=== PATIENT | male | born 1980 | race Caucasian/White ===

== ENCOUNTER 2016-07-22 23:37 | Emergency (ER) | payer SELFPAY ==
[~2016-07-22] VITALS: Ht 195.6 cm; Wt 72.7 kg
[2016-07-22 23:44] VITALS: TEMP 36.6; Ht 195.6 cm; Wt 72.7 kg
[2016-07-22] MEDS ORDERED: VORT1TAB3 PO (23:58)
--- NOTE | 2016-07-22 23:59 | EMERGENCY ROOM VISIT NOTE ---
History Report prepared by Jeremíasibmarcus: Harmony Solis Under the Supervision of: Dr. Isabela Collins D.O. First contact with patient: 23:40 Chief Complaint: MENTAL HEALTH EVALUATION Stated Complaint: MR History of Present Illness The patient is a 36 year old male who presents to the Emergency Room for mental health evaluation. Per police, patient was brought in by police for sending a text to a new female friend saying that he has no reason to live and that he is "going to blow his brains out". Per patient, he states that he met this new friend online and has been texting with her. He got into an argument with his mother ramin about his daughter. He then proceed to text his new friend trying to seek attention and he states that he did not mean anything he said. He states that he is not depressed, sees a therapist every 6 weeks and is currently on medication that has helped him. The patient did attempt suicide last year by hanging himself. Source of History: patient, police Onset: just [employer] Position: other (global) Quality: other (mental health evaluation) Timing: other (episode) Note: Patient made suicidal threat. He denies depression or having a suicidal plan at this time. Review of Systems See HPI for pertinent positives & negatives. A total of 10 systems reviewed and were otherwise negative. Past Medical & Surgical Medical Problems: (1) History of attempted suicide Family History Patient reports no known family medical history. Social History Smokeless Tobacco Use: No Alcohol Use: none Housing Status: lives with friends Occupation Status: employed Current/Historical Medications Scheduled Vortioxetine HBr (Trintellix), 20 MG PO DAILY Allergies Coded Allergies: Penicillins (Verified Allergy, Unknown, rash, 07/22/16) Valproic Acid (Verified Allergy, Unknown, DELIRIUM, 07/22/16) Physical Exam Vital Signs Date Time Temp Pulse Resp B/P Pulse Ox O2 Delivery O2 Flow Rate FiO2 07/23/16 02:47 81 16 139/81 100 07/23/16 01:25 88 18 144/82 99 Room Air 07/22/16 23:44 36.6 87 18 156/112 99 Room Air Physical Exam HEENT: Head - normocephalic and atraumatic Pupils are equal, round, and reactive to light. Extraocular eye muscles are intact, and sclera are anicteric. Nose - moist nasal mucosa without discharge. Mouth - moist buccal mucosa. Oropharynx is nonerythematous and there is no tonsillar exudate or edema noted. Neck: Supple; no JVD, nuchal rigidity, cervical lymphadenopathy. Heart: Regular rate and rhythm. There is a normal S1 and S2 with no murmurs, clicks, or gallops appreciated. Lungs: Clear to auscultation bilaterally with no wheezes, rales, or rhonchi. Abdomen: Soft, completely nontender, nondistended, with good bowel sounds. There are no palpable pulsatile masses or hepatosplenomegaly. There is no guarding, rigidity, or rebound noted. Extremities: No evidence of cyanosis, clubbing, or edema. There are easily palpable peripheral pulses. Skin: warm and dry with good turgor and no rashes. Psych: History of attempted hanging. Denies actual suicidal thought or plan at this time. Fairly angry. Medical Decision & Procedures Laboratory Results 07/22/16 23:53 07/22/16 23:53 Test 07/22/16 23:53 07/23/16 00:20 Red Blood Count 4.84 M/uL (4.7-6.1) Mean Corpuscular Volume 85.3 fL (80-100) Mean Corpuscular Hemoglobin 30.6 pg (25-34) Mean Corpuscular Hemoglobin Concent 35.8 g/dl (32-36) RDW Standard Deviation 44.7 fL (36.4-46.3) RDW Coefficient of Variation 14.3 % (11.5-14.5) Mean Platelet Volume 10.2 fL (7.4-10.4) Anion Gap 9.0 mmol/L (3-11) Est Creatinine Clear Calc Drug Dose 87.5 ml/min Estimated GFR () 89.6 Estimated GFR (Non- 77.3 BUN/Creatinine Ratio 12.1 (10-20) Calcium Level 8.8 mg/dl (8.5-10.1) Total Bilirubin 0.4 mg/dl (0.2-1) Direct Bilirubin < 0.1 mg/dl (0-0.2) Aspartate Amino Transf (AST/SGOT) 16 U/L (15-37) Alanine Aminotransferase (ALT/SGPT) 28 U/L (12-78) Alkaline Phosphatase 62 U/L (45-117) Total Protein 8.0 gm/dl (6.4-8.2) Albumin 4.0 gm/dl (3.4-5.0) Thyroid Stimulating Hormone (TSH) 1.900 uIu/ml (0.300-4.500) Salicylates Level 3.2 mg/dl (2.8-20) Acetaminophen Level < 2 ug/ml (10-30) Ethyl Alcohol mg/dL < 3.0 mg/dl (0-3) Urine Color YELLOW Urine Appearance CLEAR (CLEAR) Urine pH 6.5 (4.5-7.5) Urine Specific [place] 1.012 (1.000-1.030) Urine Protein NEG (NEG) Urine Glucose (UA) NEG (NEG) Urine Ketones NEG (NEG) Urine Occult Blood NEG (NEG) Urine Nitrite NEG (NEG) Urine Bilirubin NEG (NEG) Urine Urobilinogen NEG (NEG) Urine Leukocyte Esterase NEG (NEG) Urine Opiates Screen NEG (NEG) Urine Methadone, Qualitative NEG (NEG) Urine Barbiturates NEG (NEG) Urine Phencyclidine (PCP) Level NEG (NEG) Ur Amphetamine/Methamphetamine NEG (NEG) MDMA (Ecstasy) Screen NEG (NEG) Urine Benzodiazepines Screen NEG (NEG) Urine Cocaine Metabolite NEG (NEG) Urine Marijuana (THC) NEG (NEG) Laboratory results per my review. ED Course 2345: Past medical records reviewed. The patient was evaluated in room A8. A complete history and physical exam was performed. Labs are drawn as above. A 302 was petitioned by the police. 0100: the patient was felt to be medically cleared and will be evaluated by 3 S. 0146: I spoke with [facility] staff and they will try to talk to mother or roommate of patient. 0204: [facility] staff spoke with mom and said the patient is fine and can be sent home. The mother states she would vocalize if she was concerned for his safety. 0212: I spoke with the patient and he would like to go home. [facility] staff is talking with the psychiatrist about discharging him. 0246: Upon reevaluation, hemodynamically stable. I discussed findings and results with the patient. He verbalized agreement of the treatment plan. He was discharged home. Medical Decision The patient is a 36 year old male who presents to the ED for mental health evaluation. Differential diagnosis includes suicidal threat, mood disorder, thought disorder, anger management issues. Labs include UA clean, alcohol negative, salicylates 3.2, Tylenol less than 2, urine tox screen negative, TSH normal, LFT and glucose normal, renal function normal, normal white count and H&H. This is a 36-year-old male patient with a history of depression who presents to the emergency department after making some suicidal threats by text message. The patient has a history of depression and is followed by a therapist every 6 weeks. He has an appointment scheduled in 5 days. The patient denies any intent to harm himself. He states that he was only sending those texts to get attention. The patient was able to contract for safety. The mental health staff spoke with the patient's mother who agreed that he could keep himself safe and that she would watch over him. Impression Primary Impression: Suicidal thoughts Scribe Attestation The scribe's documentation has been prepared under my direction and personally reviewed by me in its entirety. I confirm that the note above accurately reflects all work, treatment, procedures, and medical decision making performed by me. Departure Information Dispostion Home / Self-Care Referrals No Doctor, Assigned (PCP) Forms HOME CARE DOCUMENTATION FORM, IMPORTANT VISIT INFORMATION Patient Instructions My [facility] [employer] Additional Instructions Call CAN HELP - [phone] if you have any thoughts of hurting yourself. Follow up with Ms. Granados on Saturday. Return here to the ER if you feel more depressed
[2016-07-23 00:12] LABS: HEMATOCRIT 41.3 % (42-52); MEAN CELL VOLUME 85.3 fL (80-100); MEAN CORPUSCULAR HEMOGLOBIN 30.6 pg (25-34); MEAN CORPUSCULAR HGB CONC 35.8 g/dl (32-36); MEAN PLATELET VOLUME 10.2 fL (7.4-10.4); PLATELET COUNT 212 K/uL (130-400); RED BLOOD COUNT 4.84 M/uL (4.7-6.1); WHITE BLOOD COUNT 9.03 K/uL (4.8-10.8)
[2016-07-23 00:30] LABS: ALT/SGPT 28 U/L (12-78); AST/SGOT 16 U/L (15-37); BLOOD UREA NITROGEN 15 mg/dl (7-18); BUN/CREATININE RATIO 12.1 (10-20); CALCIUM 8.8 mg/dl (8.5-10.1); CARBON DIOXIDE 27 mmol/L (21-32); CHLORIDE 106 mmol/L (98-107); GLUCOSE 101 mg/dl (70-99); POTASSIUM 4.1 mmol/L (3.5-5.1); SODIUM 142 mmol/L (136-145)
[2016-07-23 00:41] LABS: ALKALINE PHOSPHATASE 62 U/L (45-117)
[2016-07-23 00:44] LABS: ACETAMINOPHEN < 2 ug/ml (10-30)
[2016-07-23 00:45] LABS: URINE APPEARANCE CLEAR (CLEAR); URINE BILIRUBIN NEG (NEG); URINE COLOR YELLOW; URINE NITRITE NEG (NEG); URINE PH 6.5 (4.5-7.5); URINE SPECIFIC GRAVITY 1.012 (1.000-1.030); UROBILINOGEN NEG (NEG)
[2016-07-23 00:49] LABS: REVIEW REQ? NO
[2016-07-23 00:50] LABS: MANUAL MICROSCOPIC REQUIRED? NO
[2016-07-23 01:03] LABS: BENZODIAZEPINE, URINE NEG (NEG); COCAINE,URINE NEG (NEG); PHENCYCLIDINE, URINE NEG (NEG)
[2016-07-23 02:47] VITALS: BP 139/81; PULSE 81; O2SAT 100
== END 2016-07-23 02:48 | disposition home or self-care (01) ==
LOC: C.EDA 23:39
DX: F32.9 Major depressive disorder, single episode, unspecified (principal); R45.851 Suicidal ideations; Z79.899 Other long term (current) drug therapy